=== PATIENT | female | born 1980 | race Caucasian/White ===

== ENCOUNTER 2019-12-29 21:27 | Emergency (ER) | payer SELFPAY ==
[~2019-12-29] VITALS: Ht 170.2 cm; Wt 56.7 kg
[2019-12-29 21:31] VITALS: BP 116/75
== END 2019-12-29 22:20 | disposition home or self-care (01) ==
LOC: ED 21:45
DX: K02.9 Dental caries, unspecified (principal); R51 Headache; Z72.9 Problem related to lifestyle, unspecified
CPT/HCPCS: 99283